=== PATIENT | female | born 1985 ===

== ENCOUNTER 2024-01-02 06:16 | Day surgery (SDC) | payer OTHER ==
[2024-01-02] MEDS ORDERED: CEFOXITIN SODIUM 2,000 MG VIAL IV ONE (08:25)
[2024-01-02] MEDS ORDERED: POVIDONE-IODINE 118 ML BOTT TOP ONE (10:03)
[2024-01-02] MEDS ORDERED: PROMETHAZINE HCL 50 MG/ML AMPUL IM ONE (10:45)
[2024-01-02] MEDS ORDERED: MORPHINE SULFATE 4 MG/ML VIAL IV PRN (10:45)
[2024-01-02] MEDS ORDERED: MORGIDOX100 MG PO (10:46)
[2024-01-02] MEDS ORDERED: NAPR500T14 PO (10:46)
== END 2024-01-02 16:05 | disposition home or self-care (01) ==
LOC: CIR.AMB 06:16
PROVIDERS: ATTEND Obstetrics & Gynecology
DX: D25.0 Submucous leiomyoma of uterus (principal); N84.0 Polyp of corpus uteri; N92.5 Other specified irregular menstruation; Z91.011 Allergy to milk products; Z91.018 Allergy to other foods; E11.9 Type 2 diabetes mellitus without complications; G47.33 Obstructive sleep apnea (adult) (pediatric); F41.9 Anxiety disorder, unspecified